=== PATIENT | male | born 1955 | race Caucasian/White ===

== ENCOUNTER 2018-12-01 01:43 | Emergency (ER) | payer MEDICARE, OTHER, SELFPAY ==
[2018-12-01 01:44] VITALS: BP 186/111; PULSE 73; RESP 16; TEMP 37; O2SAT 96; BMI 36.3
[2018-12-01 02:10] VITALS: BP 183/122; PULSE 74; RESP 16; O2SAT 97
[2018-12-01] MEDS: Neomycin Sulfate/Polymyxin/Hc Susp 10 ML Bottle 4 DRP OTIC (02:11)
--- NOTE | 2018-12-01 02:15 | ED.VISSUMM ---
- ER Visit Summary Date of Service: 12/01/18 Chief Complaint: Right ear pain History of Present Illness: The patient is a 63 M who presents the emergency department with continued right ear pain. Patient was seen by primary care 1 week ago was diagnosed with otitis externa. He states he has very chlorinated water at home makes his ears very dry. He is given a prescription but states it was too expensive. And states that he was given another prescription but it made his ear itch. Is unsure the name. He notes some drainage out of the right ear. Decreased hearing. Notes it is very painful for him to touch the ear. Physical Examination: Afebrile vital signs stable The right ear canal is swollen almost completely. There is exudate. Pain with movement of the pinna. No mastoid tenderness. No surrounding erythema. Emergency Department Course and Treatment: An ear wick was placed. Cortisporin otic instilled into the canal and the wick. He will use this for drops every 6 hours. Follow-up with primary care return if worsening or concerns Impression: 1. Right otitis externa 2. Ear wick placement by physician This note was generated with [employer] dictation software. It may contain incorrect words, spelling, and punctuation that were not noted in review of the chart prior to signing ED Disposition - Plan for ED Patient: Disposition: Home or Assisted Living Instructions: ED Otitis Externa Referrals: [facility],Out of [Primary Care Provider] - Additional Instructions: The ear wick may fall out on its own but may need to be removed with a tweezers. Removed once symptoms are improving The eardrops are 4 drops every 6 hours x 10 days
== END 2018-12-01 02:27 | disposition home or self-care (01) ==
PROVIDERS: Emergency Provider Emergency Medicine
DX: H60.91 Unspecified otitis externa, right ear (principal)
CPT/HCPCS: 99282

== ENCOUNTER 2020-11-07 13:57 | Outpatient (RCR) | payer MEDICARE, SELFPAY ==
[2020-11-07] MEDS: COVID-19 VACC, MRNA(PFIZER)/PF 30 MCG/0.3 ML SYRINGE IM (08:18)
[2020-11-28] MEDS: COVID-19 VACC, MRNA(PFIZER)/PF 30 MCG/0.3 ML SYRINGE IM (07:39)
== END 2020-11-07 23:59 ==
LOC: IMMUN 13:57
PROVIDERS: Visit Provider Family Medicine
DX: Z23 Encounter for immunization (principal)
CPT/HCPCS: 0001A; 0002A